=== PATIENT | female | born 1995 | race Caucasian/White ===

== ENCOUNTER 2019-06-03 14:58 | Emergency (ER) | payer OTHER ==
--- NOTE | 2019-06-03 15:08 | ED ---
Substance Abuse/Use - HPI Summary HPI Summary: This pt is a 23 y/o female presenting to [facility] via EMS for left arm/hand pain after shooting heroin into left wrist at around 1300 today. Pt states she missed the vein in her hand and now has left hand and arm pain. Pt believes the heroin was mixed with meth. She notes she also did a meth rinse where she shared a cotton with someone else. Additionally she reports myalgia, headache, back pain, nausea, photophobia, and chills. Pt admits to tobacco, heroin, and meth use. Denies alcohol use. PMHx asthma for which she uses emergency albuterol. - History Of Current Complaint Chief Complaint: EDSubstanceAbuse Stated Complaint: SUBSTANCE ABUSE PER NURSE Time Seen by Provider: 06/03/19 15:03 Hx Obtained From: Patient Onset/Duration of Drug/ETOH Abuse: Hours Ingestion History: Type/Name Of Drug - Heroin and meth Overdose Characteristics: IV Severity Currently: Mild Aggravating Factor(s): Nothing Alleviating Factor(s): Nothing Associated Signs And Symptoms: Nausea, Intentional Ingestion, Other: - POSITIVE : headache, back pain, photophobia, chills, myalgia. - Allergies/Home Medications Allergies/Adverse Reactions: Allergies Allergy/AdvReac Type Severity Reaction Status Date / Time No Known Allergies Allergy Verified 06/03/19 16:23 PMH/Surg Hx/FS Hx/Imm Hx Endocrine/Hematology History: Denies: Hx Diabetes Cardiovascular History: Denies: Hx Hypertension - Surgical History Surgical History: None Infectious Disease History: No Infectious Disease History: Denies: Traveled Outside the [place] in Last 30 Days - Family History Known Family History: Negative: Cardiac Disease, Hypertension, Diabetes - Social History Alcohol Use: None Substance Use Type: Reports: Heroin Substance Use Comment - Amount & Last Used: Meth Smoking Status (MU): Current Some Day Smoker Review of Systems Positive: Chills. Negative: Fever Positive: Photophobia Positive: Nausea Musculoskeletal: Other - POSITIVE: left hand pain, back pain Positive: Myalgia Positive: Headache All Other Systems Reviewed And Are Negative: Yes Physical Exam - Summary Physical Exam Summary: VITAL SIGNS: Reviewed. GENERAL: Patient is a well-developed and nourished female who is lying comfortable in the stretcher. Patient is not in any acute respiratory distress. HEAD AND FACE: No signs of trauma. No ecchymosis, hematomas or skull depressions. No sinus tenderness. EYES: PERRLA, EOMI x 2, No injected conjunctiva, no nystagmus. EARS: Hearing grossly intact. Ear canals and tympanic membranes are within normal limits. MOUTH: Oropharynx within normal limits. NECK: Supple, trachea is midline, no adenopathy, no JVD, no carotid bruit, no c- spine tenderness, neck with full ROM. CHEST: Symmetric, no tenderness at palpation LUNGS: Clear to auscultation bilaterally. No wheezing or crackles. CVS: Regular rate and rhythm, S1 and S2 present, no murmurs or gallops appreciated. ABDOMEN: Soft, non-tender. No signs of distention. No rebound no guarding, and no masses palpated. Bowel sounds are normal. EXTREMITIES: FROM in all major joints, no edema, no cyanosis or clubbing. No erythema on left arm. NEURO: Alert and oriented x 3. No acute neurological deficits. Speech is normal and follows commands. SKIN: Dry and warm Triage Information Reviewed: Yes Vital Signs On Initial Exam: Initial Vitals Temp Pulse Resp BP Pulse Ox 99.1 F 100 20 113/48 99 06/03/19 14:59 06/03/19 14:59 06/03/19 14:59 06/03/19 14:59 06/03/19 14:59 Vital Signs Reviewed: Yes Diagnostics - Vital Signs Vital Signs Temp Pulse Resp BP Pulse Ox 06/03/19 14:59 99.1 F 100 20 113/48 99 - Laboratory Lab Statement: Any lab studies that have been ordered have been reviewed, and results considered in the medical decision making process. Re-Evaluation - Re-Evaluation First Eval Re-Evaluation Time: 17:14 Change: Improved Comment: All pt's symptoms have resolved. She will be discharged home. Course/Dx - Course Assessment/Plan: Urinalysis is negative for UTI,. Patient refused blood work. She was given Toradol and Tylenol and her symptoms resolved. At this point I have discussed the findings with the patient and she will be discharged home with follow-up from her PCP. Patient understands the risk of not having blood work, however the patient refuses and she wants to go home. I discussed all the findings and test results with the patient. Patient was instructed to return to the emergency room immediately if any of the symptoms return or worsen. Plan of care was discussed with the patient and she understands and agrees. All questions were answered at patient satisfaction. There were no further complaints or concerns. Lung exam before discharge: CTA B/L. Good air exchange. No wheezing or crackles heard. CVS: S1 and S2 present. No murmurs appreciated. Patient is alert and oriented x 3. Patient is hemodynamically stable. Patient will be discharged home with follow up from her PCP in the next 2-3 days. - Diagnoses Provider Diagnoses: Substance abuse Discharge ED - Sign-Out/Discharge Documenting (check all that apply): Patient Departure - Discharge home Patient Received Moderate/Deep Sedation with Procedure: No - Discharge Plan Condition: Stable Disposition: HOME Patient Education Materials: Polysubstance Abuse (ED) Referrals: [facility] [Outside] Additional Instructions: Please follow up with your primary care provider in 2-3 days. If you don't have one please follow up with [facility]. RETURN TO THE EMERGENCY DEPARTMENT FOR ANY WORSENING OR NEW SYMPTOMS. - Billing Disposition and Condition Condition: STABLE Disposition: Home - Attestation Statements Document Initiated by Vickyibe: Yes Documenting Scribe: Lashell Luna Provider For Whom Vickyibe is Documenting (Include Credential): Akil Villanueva MD Scribe Attestation: ILashell, scribed for Akil Villanueva MD on 06/03/19 at 2140. Scribe Documentation Reviewed: Yes Provider Attestation: The documentation as recorded by the Lashell singh accurately reflects the service I personally performed and the decisions made by me, Akil Villanueva MD Status of Scribe Document: Viewed
[2019-06-03] MEDS ORDERED: NS 0.9% 1000 ML** 1,000 ML IV ONE (15:12)
[2019-06-03] MEDS ORDERED: Acetaminophen TAB* 325 MG PO ONE (15:14)
[2019-06-03] MEDS ORDERED: Ketorolac INJ* 30 MG/ML 1 ML VIAL IV PUSH ONE (15:14)
[2019-06-03 16:38] LABS: Urine Appearance Cloudy; Urine Bilirubin Negative (Negative); Urine Blood Negative (Negative); Urine Color Yellow; Urine Glucose Negative (Negative); Urine Ketones Negative (Negative); Urine Nitrite Negative (Negative); Urine Protein Negative (Negative); Urine Urobilinogen Negative (Negative)
[2019-06-03 17:29] VITALS: BP 123/77
== END 2019-06-03 17:29 | disposition home or self-care (01) ==
LOC: ED 14:58
DX: F11.10 Opioid abuse, uncomplicated (principal); F17.200 Nicotine dependence, unspecified, uncomplicated
CPT/HCPCS: 81003; 96361; 96374; 99283; A9270-GY; J1885